=== PATIENT | female | born 1955 | race Caucasian/White ===

== ENCOUNTER → 2017-04-21 | Outpatient (CLI) | payer OTHER ==
[2016-08-15 11:50] VITALS: BP 138/70
--- NOTE | 2017-04-21 16:55 | MRI ---
HISTORY: Hip pain. EXAMS: NONCONTRAST MR EXAM OF THE LEFT HIP Technique: Multisequence and multiplanar MR images of the left hip were performed at 1.5 Carla withou t the use of IV gadodiamide contrast. No comparisons are available. Findings: The MR exam demonstrates mild central acetabular articular cartilage loss and femoral head articular cartilage loss, compatible with mild left hip joint chondromalacia. There is no evidence for femoral head osteonecrosis. No subchondral collapse is seen. No acute fracture, subluxation, dislocation i s evident. No intra-articular loose body or synovial erosive process is seen. The joint erosion is noted. No aggressive or infiltrating soft tissue mass is observed. There is no evidence for ileopsoa s but there is mild greater trochanteric bursitis. No abnormalities associated with the adjacent soft tissues, such as mass lesions or focal fluid collections, can be identified, either. No infiltratin g soft tissue mass lesion is noted. There is mildly increased T2 signal at the insertional site of t he gluteus medius tendon on the greater trochanter, compatible with mild gluteus medius tendinosis, b ut without tendon tear seen. No other bony or soft tissue abnormalities are seen. MRI examination of the pelvis demonstrates no acute abnormality. No pelvic soft tissue mass lesion or adenopathy is se en. No other MSK abnormality is seen. IMPRESSION: 1. Mild left hip joint chondromalacia without evidence for an acute fracture, subluxation, dislocatio n, AVN, and/or an aggressive bone marrow lesion. 2. Mild gluteus medius tendinosis (at the level of the greater trochanter) with mild inflammation see n within the greater trochanteric bursa as well on this exam. Reported By:
== END | disposition home or self-care (01) | DRG 556 ==
LOC: RAD 10:18
PROVIDERS: ATTEND Internal Medicine
DX: M79.7 Fibromyalgia (principal); M25.552 Pain in left hip; M94.252 Chondromalacia, left hip; M76.02 Gluteal tendinitis, left hip
CPT/HCPCS: 73721

== ENCOUNTER 2017-09-22 14:08 | Emergency (ER) | payer OTHER ==
[2017-09-22 14:13] VITALS: BP 163/71; BMI 29.2
[2017-09-22] MEDS ORDERED: ZOFRAN INJ 4 MG VIAL IM ONE (14:28)
[2017-09-22] MEDS ORDERED: DEMEROL INJ IM ONE (14:28)
--- NOTE | 2017-09-22 14:30 | DR.EXTPAIN ---
HPI - Time seen Time seen: 14:35 - PCP Primary Care Physician: ROSA - HPI Comment HPI Comment: WORSE TODAY. HISTORY OF HERNIATED DISC. HOME MEDS NOT HELPING. RT ARM IS NUMB. - Complaint/Symptoms Chief Complaint Doctor Comments: PATIENT HAVE LOWER NECK PAIN GOING INTO LEFT ARM TIMES 2 WEEKS. Chief Complaint:: PT. C/O SEVERE RIGHT SHOULDER PAIN X 1 WEEK. PT. DENIES INJURY. PT. HAS A HX. OF HERNIATED DISC IN HER NECK AND HAS 2 NECK SURGERIES. - Nurses notes reviewed Nurses Notes Review: Yes - Source History Provided: Patient - Mode of arrival Mode of Arrival: Ambulatory - Timing Onset of Chief Complaint: 09/17/17 - Context History of: Arthritis - Associated signs and symptoms Associated Signs and Symptoms: Pain PMH - PMH Past Medical History: Yes Past Medical History Comment: HERNIATED DISC, FIBROMYALGIA Past Surgical History: Yes Surgical History: Cholecystectomy, Hysterectomy, Ortho Surgery Past Surgical History Comment: KNEE REPLACEMENT, 2 BACK SURGERIES, 2 NECK SURGERIES, CARPAL TUNNEL, RIGHT SHOULDER - Family History History of Family Medical Conditions: Yes Family Medical History: Diabetes Mellitus, [place], Coronary Artery Disease, Heart Failure, Hypertension - Social History Does patient currently use any type of tobacco product: No Have you used tobacco products in the last 12 months: No Type of Tobacco Use: None Does any household member use tobacco: No Alcohol Use: None Do you use any recreational Drugs:: No Lives With: Significant Other Lives Where: Home - infectious screening In the last 2 months have you had wt loss of >10#?: NO Have you had fever, night sweats or hemotysis?: No Have you traveled outside the country in the last 6 months?: No Isolation: Standard ROS - Review of Systems Constitutional: No Symptoms Reported Eyes: No Symptoms Reported ENTM: No Symptoms Reported Respiratoy: No Symptoms Reported Cardiovascular: No Symptoms Reported Gastrointestinal/Abdominal: No Symptoms Reported Genitourinary: No Symptoms Reported Neurological: Numbness, Paresthesia Musculoskeletal: Neck Pain, Shoulder Integumentary: No Symptoms Reported Hematologic/Lymphatic: No Symptoms Reported Endocrine: No Symptoms Reported All Other Systems: Reviewed and Negative PE - Vital Signs Vitals: Temperature 97.8 F Pulse Rate 105 Respiratory Rate 20 Blood Pressure [Right Arm] 148/75 Blood Pressure 163/71 O2 Sat by Pulse Oximetry 97 - General Limitations: No Limitations General Appearance: Alert - Head Head Exam: Normal Inspection - Eyes Eye exam: Normal Appearance - ENT ENT Exam: Normal External Ear Exam - Neck Neck Exam: Trachea Midline, Tenderness (POSTERIOR LOWER NECK.) - Chest Chest Inspection: Symmetric Chest Wall Rise - Respiratory Respiratory Exam: Normal Lung Sounds Bilat Respiratory Exam: Bilateral Clear to Auscultation - Cardiovascular Cardiovascular Exam: Regular Rate, Normal Rhythm, Normal Heart Sounds - Abdominal Exam Abdominal Exam: Normal Bowel Sounds, Soft. negative: Tenderness - Extremities Extremities Exam: Full ROM. negative: Joint Swelling - Upper Extremities Shoulder Exam: Full ROM, Tenderness - Lower Extremities Neurovascular/Tendon Exam: Normal Capillary Refill Gait Exam: Observed and Normal - Back Back Exam: Paraspinal Tenderness, Vertebral Tenderness - Neurological Neurological Exam: Alert, Oriented X3 - Psychiatric Psychiatric Exam: Normal Affect, Normal Mood - Skin Skin Exam: Normal Color MDM - Differential Diagnosis Differential Diagnosis: Fracture (NECT), Sprain (NECK) Course - Treatment Treatment: SEE ORDERS. - Education/Counseling Education/Counseling: Patient, Family, Education Educated On: Treatment, Diagnosis, Needs for Follow Up ROR - XRAY XRAY Interpreted by: Radiologist XRAY Findings: REPORT DISCUSS WITH PATIENT AND FAMILY. - Diagnosis Discharge Problem: Cervical sprain Qualifiers: Encounter type: initial encounter Qualified Code(s): S13.9XXA - Sprain of joints and ligaments of unspecified parts of neck, initial encounter Cervical muscle strain Qualifiers: Encounter type: initial encounter Qualified Code(s): S16.1XXA - Strain of muscle, fascia and tendon at neck level, initial encounter - Discharge Plan Disposition: 01 HOME, SELF-CARE Condition: Stable - Follow ups/Referrals Follow ups/Referrals: Vinnie Linder [Primary Care Provider] - 2 days BERTHA CRUZ [STAFF PHYSICIAN] - 2 days - Instructions Instructions: Cervical Strain and Sprain With Rehab-[facility], Cervical Radiculopathy, [id number] Additional Instructions: RETURN TO ED IF WORSE. CONTINUE HOME MEDS
[2017-09-22] MEDS ORDERED: ZOFRAN INJ 4 MG VIAL ONE (14:33)
[2017-09-22] MEDS ORDERED: DEMEROL INJ ONE (14:34)
--- NOTE | 2017-09-22 15:28 | CT ---
HISTORY: Neck pain right side going into shoulder and right arm. Right arm paresthesia. Study: CT cervical spine without contrast Comparison: No priors Technique: Multiple axial images of the cervical spine were obtained from the skull base to the thora cic inlet without administration of IV contrast. Sagittal and coronal reformats were performed and r eviewed. Dose reduction techniques utilized automatic exposure control. Findings: There is mild cervical straightening, likely indicating muscle spasm. Stable surgical fusion is prese nt C5-6 and C6-7. Anterior metallic plate and screws are present at C5-6. The hardware appears intact . No fracture or subluxation is seen. There is no evidence of central spinal stenosis. Small bilatera l subarticular spurs are present at the C4-5 level. This is with minimal foraminal stenosis. No evide nce of paraspinous mass or fluid collection is seen. The posterior fossa region is unremarkable. Lung apices are clear. IMPRESSION: Stable surgical fusion as noted above. Hardware appears intact. Small bilateral subarticular spurs at C4-5 level. This is with minimal foraminal stenosis. No signifi cant central spinal stenosis is seen. No fracture or subluxation. Reported By:
[2017-09-22] MEDS ORDERED: TORADOL 60 MG VIAL ONE (15:46)
[2017-09-22] MEDS ORDERED: NORFLEX INJ ONE (15:47)
[2017-09-22] MEDS ORDERED: NORFLEX INJ IM ONE (15:51)
[2017-09-22] MEDS ORDERED: TORADOL 60 MG VIAL IM ONE (15:51)
[2017-09-22] MEDS ORDERED: DECADRON INJ IM ONE (17:22)
[2017-09-22] MEDS ORDERED: DILAUDID INJ IM ONE (17:22)
[2017-09-22] MEDS ORDERED: DILAUDID INJ ONE (17:22)
[2017-09-22] MEDS ORDERED: DECADRON INJ ONE (17:22)
== END 2017-09-22 17:41 | disposition home or self-care (01) ==
LOC: ER 14:15
DX: S13.9XXA Sprain of joints and ligaments of unspecified parts of neck, initial encounter (principal); S16.1XXA Strain of muscle, fascia and tendon at neck level, initial encounter; Y33.XXXA Other specified events, undetermined intent, initial encounter; Y92.9 Unspecified place or not applicable
CPT/HCPCS: 72125; 96372; 99282; 99283; J1100; J1170; J1885; J2175; J2360; J2405